=== PATIENT | male | born 1980 | race Caucasian/White ===

== ENCOUNTER 2017-09-14 18:39 | Emergency (ER) | payer SELFPAY ==
[2017-09-14] MEDS ORDERED: IBUPROFEN 800 MG TABLET PO ONE (19:30)
--- NOTE | 2017-09-14 19:30 | ER Document Report ---
HPI - HPI Patient complains to provider of: coughing, right lateral rib pop Onset: Just prior to arrival - 1744 today Pain Level: 5 Context: 36 yo occ. smoker male felt pop in left lateral rib at 17:45 pm tonight when coughing, felt sharp pain that tylenol did not relieve. No shortness of breath. Associated Symptoms: None Exacerbated by: Movement - deep breath Relieved by: Denies Similar symptoms previously: No Recently seen / treated by doctor: No - ROS ROS below otherwise negative: Yes Systems Reviewed and Negative: Yes All other systems reviewed and negative Past Medical History - General Information source: Patient - Social History Smoking Status: Current Some Day Smoker Frequency of alcohol use: None Drug Abuse: None Lives with: Family Family History: Reviewed & Not Pertinent Patient has suicidal ideation: No Patient has homicidal ideation: No - Medical History Medical History: Negative Renal/ Medical History: Denies: Hx Peritoneal Dialysis Surgical Hx: Negative Vertical Provider Document - CONSTITUTIONAL Agree With Documented VS: Yes Exam Limitations: No Limitations General Appearance: Mild Distress - INFECTION CONTROL TRAVEL OUTSIDE OF THE [place] IN LAST 30 DAYS: No - HEENT HEENT: Normocephalic - NECK Neck: Supple - RESPIRATORY Respiratory: Breath Sounds Normal, No Respiratory Distress, Other - tender lateral posterior - CARDIOVASCULAR Cardiovascular: Regular Rate, Regular Rhythm - BACK Back: Normal Inspection Notes: tender right lateral lower chest wall, rib 8-9 area, no rash - MUSCULOSKELETAL/EXTREMETIES Musculoskeletal/Extremeties: MAEW, FROM - NEURO Level of Consciousness: Awake, Alert - DERM Integumentary: Warm, Dry, No Rash Course - Re-evaluation Re-evalutation: 09/14/17 20:28 fx 8th rib per rad - Vital Signs Vital signs: Temp Pulse Resp BP Pulse Ox 98.6 F 77 18 139/88 H 98 09/14/17 18:43 09/14/17 18:43 09/14/17 18:43 09/14/17 18:43 09/14/17 18:43 Discharge - Discharge Clinical Impression: fx 8th right rib, Coughing Condition: Good Disposition: HOME, SELF-CARE Instructions: Rib Injuries and Fractures ([facility]), Ibuprofen (General) ([facility]), Oral Narcotic Medication ([facility]), Stop Smoking ([facility]) Additional Instructions: hold the area with pillow for deep breathing once every hour motrin pain medication for sever pain return to ER if increased pain, fever, chills, shortness of breath quit smoking Prescriptions: Hydrocodone Bit/Acetaminophen [Hydrocodon-Acetaminophen 5-325] 1 each PO Q4HP PRN #10 tablet PRN Reason: Ibuprofen [Motrin 800 mg Tablet] 800 mg PO Q8HP PRN #30 tablet PRN Reason: Referrals: LAYO ALMANZA MD [ACTIVE STAFF] - Follow up as needed
--- NOTE | 2017-09-14 20:01 | RADIOLOGY REPORT (SQ) ---
EXAM DESCRIPTION: RIBS RIGHT W/PA CHEST COMPLETED DATE/TIME: 09/14/2017 7:49 pm REASON FOR STUDY: rt rib pain COMPARISON: None. TECHNIQUE: Frontal view of the chest and additional views of the right ribs acquired. NUMBER OF VIEWS: Three view. LIMITATIONS: None. FINDINGS: FRONTAL CXR: No pneumothorax. No pleural effusion. No atelectasis or infiltrates. RIBS: Nondisplaced fracture 8th posterior right rib. Possibly acute. OTHER: No other significant finding. IMPRESSION: Nondisplaced fracture 8 posterior right ribs, possibly acute no pneumothorax. . COMMENT: SITE OF TRAUMA/COMPLAINT MARKED/STAMP COMPLETED: No TECHNICAL DOCUMENTATION: JOB ID: [id number] [employer]- All Rights Reserved Reading location - IP/workstation name: [email or web address]
[2017-09-14 20:26] VITALS: BP 132/92
[2017-09-14] MEDS ORDERED: HYDROCODONE/ACETAMINOPHEN 5-325 MG (6 TAB/ER DISP) PO PRN (20:26)
== END 2017-09-14 20:32 | disposition home or self-care (01) ==
LOC: ER 18:39
DX: S22.31XA Fracture of one rib, right side, initial encounter for closed fracture (principal); X58.XXXA Exposure to other specified factors, initial encounter; R05 Cough; F17.200 Nicotine dependence, unspecified, uncomplicated
CPT/HCPCS: 99283